=== PATIENT | female | born 1965 | race Caucasian/White ===

== ENCOUNTER 2020-06-08 11:22 | Emergency (ER) | payer OTHER ==
[~2020-06-08] VITALS: Ht 162.6 cm; Wt 98.9 kg
[2020-06-08] MEDS ORDERED: TOPROL XL25 M1 (11:40)
[2020-06-08] MEDS ORDERED: ADULT LOW DOSE81 M1 (11:41)
[2020-06-08] MEDS ORDERED: CRESTOR5 MG (11:41)
== END 2020-06-08 16:00 | disposition home or self-care (01) ==
LOC: ER 11:22
DX: R07.89 Other chest pain (principal); Z03.818 Encounter for observation for suspected exposure to other biological agents ruled out

== ENCOUNTER 2022-04-17 12:18 | Emergency (ER) | payer OTHER ==
[~2022-04-17] VITALS: Ht 162.6 cm; Wt 94.3 kg
[~2022-04-17 12:18] MED LIST: ADULT LOW DOSE81 M1; CRESTOR5 MG; TOPROL XL25 M1
[2022-04-17] MEDS ORDERED: GLUMETZA500 MG (13:08)
[2022-04-17] MEDS ORDERED: ATENOLOL25 MG (13:09)
[2022-04-17] MEDS ORDERED: NORVASC5 MG (13:09)
== END 2022-04-17 18:06 | disposition home or self-care (01) ==
LOC: ER 12:18
DX: R42 Dizziness and giddiness (principal); E11.9 Type 2 diabetes mellitus without complications; I10 Essential (primary) hypertension; Z88.0 Allergy status to penicillin; Z79.84 Long term (current) use of oral hypoglycemic drugs; Z20.822 Contact with and (suspected) exposure to COVID-19

== ENCOUNTER 2023-02-28 07:48 | Emergency (ER) | payer OTHER ==
[~2023-02-28] VITALS: Ht 162.6 cm; Wt 84.4 kg
[~2023-02-28 07:48] MED LIST changes: +ATENOLOL25 MG; +GLUMETZA500 MG; +NORVASC5 MG
[2023-02-28] MEDS ORDERED: CENTRUM ADULTS1 EACH (08:06)
[2023-02-28] MEDS ORDERED: OMEGA-31000 MG (08:06)
[2023-02-28 09:15] LABS: HEMATOCRIT 44.1 % (36.0-45.00); HEMOGLOBIN 15.3 g/dL (12.0-15.00); MEAN CELL VOLUME 91.4 fL (80.00-100.00); MEAN CORPUSCULAR HEMOGLOBIN 31.8 pg (27.00-32.0); MEAN CORPUSCULAR HGB CONC 34.8 g/dl (32.0-36.0); PLATELET COUNT 285 K/uL (150-450); RED BLOOD COUNT 4.83 M/uL (4.00-6.00); RED CELL DISTRIBUTION WIDTH 13.8 % (11.5-14.5)
[2023-02-28 09:51] LABS: CALCIUM 9.7 mg/dL (8.5-10.1); CREATININE SERUM 0.89 mg/dL (0.55-1.02); GFR 64.92
== END 2023-02-28 12:27 | disposition home or self-care (01) ==
LOC: ER 07:48
PROVIDERS: Emergency Medicine
DX: R07.9 Chest pain, unspecified (principal); E11.9 Type 2 diabetes mellitus without complications; Z79.84 Long term (current) use of oral hypoglycemic drugs; E78.00 Pure hypercholesterolemia, unspecified; I10 Essential (primary) hypertension; Z88.0 Allergy status to penicillin

== ENCOUNTER 2023-12-06 07:47 | Emergency (ER) | payer OTHER ==
[~2023-12-06] VITALS: Ht 162.6 cm; Wt 82.6 kg
[~2023-12-06 07:47] MED LIST changes: +CENTRUM ADULTS1 EACH; +OMEGA-31000 MG
[2023-12-06] MEDS ORDERED: GUAIFENESIN 200 MG/10 ML BLIST.PACK PO ONE ×2 (10:00→10:06)
[2023-12-06] MEDS ORDERED: IPRATROPIUM/ALBUTEROL SULFATE 3 ML AMPUL.NEB IH ONE ×2 (10:32→15:36)
[2023-12-06 10:39] LABS: HEMATOCRIT 40.7 % (36.0-45.00); HEMOGLOBIN 13.9 g/dL (12.0-15.00); MEAN CELL VOLUME 90.6 fL (80.00-100.00); MEAN CORPUSCULAR HGB CONC 34.2 g/dl (32.0-36.0); PLATELET COUNT 344 K/uL (150-450); RED CELL DISTRIBUTION WIDTH 13.7 % (11.5-14.5)
[2023-12-06] MEDS ORDERED: IPRATROPIUM/ALBUTEROL SULFATE 3 ML AMPUL.NEB IH SCH (10:45)
[2023-12-06 11:06] LABS: CALCIUM 9.9 mg/dL (8.5-10.1); CREATININE SERUM 0.66 mg/dL (0.55-1.02); GFR 91.35; POTASSIUM 4.4 mEq/L (3.5-5.1)
[2023-12-06] MEDS ORDERED: METHYLPREDNISOLONE SOD SUCC 125 MG VIAL ONE (13:15)
[2023-12-06] MEDS ORDERED: METHYLPREDNISOLONE SOD SUCC 125 MG VIAL IV ONE (13:15)
[2023-12-06] MEDS ORDERED: ALBUTEROL SULFATE 3 ML/2.5 MG AMPUL.NEB IH SCH (13:15)
[2023-12-06] MEDS ORDERED: ALBUTEROL SULFATE 3 ML/2.5 MG AMPUL.NEB IH ONE ×2 (14:40→15:30)
[2023-12-07] MEDS ORDERED: IPRATROPIUM/ALBUTEROL SULFATE 3 ML AMPUL.NEB IH SCH (09:00)
== END 2023-12-06 16:14 ==
LOC: ER 07:48
PROVIDERS: General Practice
DX: J45.901 Unspecified asthma with (acute) exacerbation (principal); R51.9 Headache, unspecified; Z20.822 Contact with and (suspected) exposure to COVID-19; I10 Essential (primary) hypertension; E11.9 Type 2 diabetes mellitus without complications; Z88.0 Allergy status to penicillin

== ENCOUNTER 2024-03-30 14:06 | Emergency (ER) | payer OTHER ==
[~2024-03-30] VITALS: Ht 162.6 cm; Wt 83.9 kg
[2024-03-30] MEDS ORDERED: MOUNJARO5 MG/0.5 M SQ (15:15)
[2024-03-30 18:07] LABS: PH,URINE 5.5 (5.0-8.0); URINE APPEARANCE Cloudy; URINE BILIRRUBIN Negative (NEGATIVE); URINE BLOOD Negative; URINE COLOR Dark Yellow; URINE GLUCOSE Negative (NEGATIVE); URINE KETONE Trace (NEGATIVE); URINE LEUKOCYTE Moderate; URINE NITRATE Negative; URINE PROTEIN Trace (NEGATIVE)
[2024-03-30 18:09] LABS: HEMATOCRIT 43.6 % (36.0-45.00); HEMOGLOBIN 15.2 g/dL (12.0-15.00); MEAN CELL VOLUME 91.3 fL (80.00-100.00); MEAN CORPUSCULAR HEMOGLOBIN 31.7 pg (27.00-32.0); MEAN CORPUSCULAR HGB CONC 34.7 g/dl (32.0-36.0); PLATELET COUNT 270 K/uL (150-450); RED BLOOD COUNT 4.78 M/uL (4.00-6.00); RED CELL DISTRIBUTION WIDTH 13.9 % (11.5-14.5)
[2024-03-30 18:11] LABS: URINE BACTERIA 13.8 uL (0.0-1933); URINE EPITHELIAL CELLS 5.8 uL (0.0-38.8); URINE RBC 24.1 uL (0.0-20.8); URINE WBC 306.2 uL (0.0-23.2)
[2024-03-30 18:36] LABS: URINE CRYSTALS MODERATE /HPF; URINE MUCUS MODERATE
[2024-03-30 18:37] LABS: CALCIUM 9.8 mg/dL (8.5-10.1); CREATININE SERUM 0.8 mg/dL (0.55-1.02); GFR 73.16; POTASSIUM 3.89 mEq/L (3.5-5.1)
[2024-03-30] MEDS ORDERED: CIPRO500 MG PO (19:35)
[2024-03-30] MEDS ORDERED: KETOROLAC TROMETHAMINE 30 MG VIAL IM STA (19:36)
== END 2024-03-30 20:21 | disposition home or self-care (01) ==
LOC: ER 14:08
PROVIDERS: General Practice
DX: B34.9 Viral infection, unspecified (principal); Z88.0 Allergy status to penicillin; N39.0 Urinary tract infection, site not specified; Z20.822 Contact with and (suspected) exposure to COVID-19

== ENCOUNTER 2024-10-06 08:52 | Emergency (ER) | payer OTHER ==
[~2024-10-06] VITALS: Ht 162.6 cm; Wt 83.5 kg
[~2024-10-06 08:52] MED LIST changes: +CIPRO500 MG PO; +MOUNJARO5 MG/0.5 M SQ
[2024-10-06 09:10] VITALS: BP 108/62; O2SAT 98
[2024-10-06] MEDS ORDERED: KETOROLAC TROMETHAMINE 60 MG VIAL IM STA (09:44)
[2024-10-06] MEDS ORDERED: KETOROLAC TROMETHAMINE 60 MG VIAL IM ONE (10:02)
[2024-10-06 10:27] LABS: BASO % 0.8 % (0.1-1.2); EOS # 0.19 (0.04-0.54); EOS % 2.5 % (0.7-7.0); HEMATOCRIT 43.2 % (34.1-44.9); HEMOGLOBIN 14.6 g/dL (11.2-15.7); LYMPH # 1.48 (1.18-3.74); LYMPH % 19.8 % (19.3-53.1); MEAN CORPUSCULAR HEMOGLOBIN 30.7 pg (25.6-32.2); MONO # 0.58 (0.24-0.82); MONO % 7.7 % (4.7-12.5); NEUT # 5.16 (1.56-6.13); NEUT % 68.9 % (34.0-71.1); PLATELET COUNT 297 K/uL (163-369); RED BLOOD COUNT 4.75 M/uL (3.93-5.22); RED CELL DISTRIBUTION WIDTH 13.3 % (11.6-14.4)
[2024-10-06 10:57] LABS: CALCIUM 9.7 mg/dL (8.5-10.1); CREATININE SERUM 0.71 mg/dL (0.55-1.02); GFR 83.69; POTASSIUM 4.46 mEq/L (3.5-5.1)
[2024-10-06 11:29] LABS: PH,URINE 5.5 (5.0-8.0); URINE APPEARANCE Clear; URINE BILIRRUBIN Negative (NEGATIVE); URINE BLOOD Negative; URINE COLOR Dark Yellow; URINE GLUCOSE Negative (NEGATIVE); URINE KETONE Negative (NEGATIVE); URINE LEUKOCYTE Negative; URINE NITRATE Negative; URINE PROTEIN Negative (NEGATIVE); URINE UROBILINOGEN 0.2 E.U./dl
[2024-10-06 11:31] LABS: URINE BACTERIA 100.3 uL (0.0-1933); URINE EPITHELIAL CELLS 2.3 uL (0.0-38.8); URINE RBC 3.2 uL (0.0-20.8); URINE WBC 3.1 uL (0.0-23.2)
== END 2024-10-06 13:26 | disposition home or self-care (01) ==
LOC: ER 08:55
PROVIDERS: General Practice
DX: M54.50 Low back pain, unspecified (principal); M25.511 Pain in right shoulder; E11.9 Type 2 diabetes mellitus without complications; Z79.84 Long term (current) use of oral hypoglycemic drugs; Z88.0 Allergy status to penicillin

== ENCOUNTER 2024-11-08 12:18 | Emergency (ER) | payer OTHER ==
[~2024-11-08] VITALS: Ht 162.6 cm; Wt 81.6 kg
[2024-11-08] MEDS ORDERED: ROSUVASTATIN CAL5 MG PO (13:10)
[2024-11-08] MEDS ORDERED: ORPHENADRINE CITRATE 30 MG/ML AMPUL IM STA (13:51)
[2024-11-08] MEDS ORDERED: KETOROLAC TROMETHAMINE 60 MG VIAL IM STA (13:56)
[2024-11-08] MEDS ORDERED: ORPHENADRINE CITRATE 30 MG/ML AMPUL ONE (13:59)
[2024-11-08] MEDS ORDERED: KETOROLAC TROMETHAMINE 60 MG VIAL IM ONE (14:08)
== END 2024-11-08 14:32 | disposition home or self-care (01) ==
LOC: ER 12:18
DX: M62.830 Muscle spasm of back (principal); Z88.0 Allergy status to penicillin